=== PATIENT | female | born 1955 | race Caucasian/White ===

== ENCOUNTER 2018-11-18 15:44 | Emergency (ER) | payer OTHER ==
[2018-11-18 15:56] VITALS: BP 137/77; PULSE 61; TEMP 98.3; BMI 40.3
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
== END 2018-11-18 17:27 | disposition home or self-care (01) ==
LOC: JERFT 15:44
CPT/HCPCS: 73090-TC-RT-FY; 73110-TC-RT-FY; 73130-TC-RT-FY; 99282-25